=== PATIENT | male | born 1955 | race African-American/Black ===

== ENCOUNTER 2019-03-30 16:47 | Inpatient (IN) ==
[2019-03-30] MEDS ORDERED: NS 1,000 ML IV ONE (17:06)
[2019-03-30 17:52] LABS: BASO# 0.04 X1000 (0.0-0.2); BASO% 0.6 % (0.0-0.8); EOS# 0.07 X1000 (0.0-0.7); EOS% 1.1 % (0.0-10.0); HEMATOCRIT 38.8 % (42.0-52.0); HEMOGLOBIN 12.4 g/dL (14.0-18.0); LYMPH# 1.24 X1000 (1.2-3.4); LYMPH% 19.8 % (20.5-51.1); MCH 27.1 PG (27-31); MCV 84.7 FL (81-99); MONO# 0.62 X1000 (0.11-0.59); MONO% 9.9 % (1.7-9.3); MPV 11.3 FL (7.4-10.4); NEUT# 4.28 X1000 (1.4-6.5); NEUT% 68.6 % (42.2-75.2); PLT 234 X1000 (130-400); RBC 4.58 XMIL (4.7-6.1); RDW 14.9 % (11.5-14.5); WBC 6.25 X1000 (4.8-10.8)
--- NOTE | 2019-03-30 17:52 | PROVIDER DOCUMENTATION ---
This chart was entered by Zarina Quiñonez Scribe, acting as scribe for Gina Hernandez MD. HPI-Syncope/Dizziness - General Chief Complaint: Syncope Stated Complaint: syncope/ v tach Time Seen by Provider: 03/30/19 16:56 Source: patient Allergies/Adverse Reactions: Patient Allergies Allergy/AdvReac Type Severity Reaction Status Date / Time No Known Allergies Allergy Verified 03/30/19 17:14 Home Medications: Home Medication List Medication Instructions Recorded Confirmed Last Taken Type Amiodarone HCl 200 mg PO DAILY 03/30/19 03/30/19 Unknown History Apixaban [Eliquis] 5 mg PO BID 03/30/19 03/30/19 Unknown History Famotidine [Pepcid] 20 mg PO DAILY 03/30/19 03/30/19 Unknown History Spironolactone 25 mg PO DAILY 03/30/19 03/30/19 Unknown History Carvedilol [Coreg] 3.125 mg PO BID #120 tab 04/02/19 Unknown Rx Furosemide [Lasix] 20 mg PO DAILY #30 tab 04/02/19 Unknown Rx Losartan [Cozaar] 100 mg PO DAILY #120 tab 04/02/19 Unknown Rx ROSUVAstatin [Crestor] 40 mg PO HS #120 tab 04/02/19 Unknown Rx - History of Present Illness-Syncope/Dizzy Nature of Presenting Problem: 63yom presents to ED by 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 Pt reports he was at work, started feeling dizzy, weak in the bathroom so he put hands out, kept from falling but when he went outside his coworkers noticed he looked 'off' so they sat him down and called EMS. EMS report when they hooked pt up to monitor he had a run of V-tach and syncope. Pt reports he had heart cath 1yr ago which showed a blockage but no intervention was recommended at time. Prior Episodes: reports: no prior history Onset/Duration: reports: just prior to arrival Timing: reports: resolved prior to arrival Position/Activity at time of episode: reports: sitting Symptoms prior to episode: reports: lightheaded Location of injury. (If syncope resulted in an injury.): reports: none Current Symptoms: reports: weakness Recently Seen Here or By Another Healthcare Provider: No Review of Systems - Adult - REVIEW OF SYSTEMS - ADULT Constitutional: reports: see HPI, fatique. denies: chills, fever Eyes: reports: no symptoms reported Ears, Nose, Mouth & Throat: reports: no symptoms reported Cardiovascular: reports: see HPI, irregular heart rate, syncope. denies: chest pain Respiratory: reports: no symptoms reported Gastrointestinal: reports: no symptoms reported Genitourinary: reports: no symptoms reported Musculoskeletal: reports: no symptoms reported Integumentary: reports: no symptoms reported Neurological: reports: see HPI, dizziness/vertigo, loss of balance, syncope. denies: slurred speech Psychiatric: reports: no symptoms reported Endocrine: reports: no symptoms reported Hematologic/Lymphatic: reports: no symptoms reported Allergic/Immunologic: reports: no symptoms reported All Other Systems: Reviewed and Negative Past History - Adult - PAST MEDICAL HISTORY-ADULT Review of Records: reports: Nursing Assessment Review, Medications Reviewed, Social history reviewed & non-contributory. Major Childhood Illnesses: reports: denies history Cardiovascular: reports: denies history Respiratory: reports: denies history Gastrointestinal: reports: denies history Obstetrical/Gynecological: reports: denies history Genitourinary: reports: denies history Musculoskeletal: reports: denies history Neurological: reports: denies history Endocrine/Immune: reports: denies history Other Conditions: reports: denies history - IMMUNIZATION STATUS Childhood Immunizations: See Nurse Assessment Flu Vaccine: See Nurse Assessment - FAMILY HISTORY Family History: reviewed, not pertinent Physical Exam-General - PHYSICAL EXAM-ADULT Initial Vital Signs Reviewed: Yes - CONSTITUTIONAL General Appearance: appears well, alert, no apparent distress. negative: anxious, combative - EYES Eyes: PERRL/EOMI, pink conjunctivae. negative: photophobia - HEAD, EARS, NOSE, MOUTH & THROAT HENMT: normocephalic/atraumatic, moist mucous membranes. negative: angioedema - NECK Neck: non-tender, full range of motion, supple, normal inspection. negative: C- spine tenderness - RESPIRATORY Respiratory: chest non-tender, lungs clear, normal breath sounds. negative: stridor, wheezing - CARDIOVASCULAR Cardiovascular: normal peripheral pulses, regular rate, rhythm, no edema. negative: bradycardia, tachycardia - GASTROINTESTINAL (ABDOMEN) Abdominal Exam: normal bowel sounds, non tender, other (protuberant abdomen). negative: guarding - MUSCULOSKELETAL Back Exam: normal inspection, no CVA tenderness, no vertebral tenderness Extremity: normal range of motion, non-tender, normal gait, normal inspection. negative: deformity - SKIN Integumentary: normal color. negative: diaphoresis, laceration(s) - NEUROLOGIC Neurologic: hatch supervisor II-XII nml as tested, grossly normal, no motor/sensory deficits - PSYCHIATRIC Psych/Mental Status: normal mood/affect, oriented x 3. negative: anxious, disheveled Progress - PLAN OF CARE/RESULTS Progress/Plan/Lab Results: Orders Category Date Time Status Admit [facility] Routine AdmDCTranf 03/30/19 22:36 Active Activity - Up with Assistance ORDERED Care 03/30/19 22:36 Active Cardiac Monitoring DIRECTED Care 03/30/19 17:06 Completed Intake and Output-Strict ORDERED Care 03/30/19 22:36 Active Nursing- MD Consult Request ROUTINE Care 03/30/19 22:36 Completed Saline Loc NOW Care 03/30/19 17:05 Completed Vital Signs Order Q 8-HR ASSESS Care 03/30/19 22:36 Active Z-Document. for Tele Applied ORDERED Care 03/30/19 22:36 Completed Physician/Provider Consults Routine Cons 03/30/19 22:36 Ordered CHEST-2 VIEWS [RAD] Routine Exams 03/31/19 10:00 Completed CHEST-2 VIEWS [RAD] Stat Exams 03/30/19 17:05 Completed A1C HGB W EST AVG GLUCOSE [CHEM] Routine Lab 03/31/19 07:07 Completed BASIC METABOLIC PANEL [CHEM] Routine Lab 03/31/19 07:07 Completed CBC WITH DIFF [HEME] Routine Lab 03/31/19 07:07 Completed CBC WITH ELECTRONIC DIFF [HEME] Stat Lab 03/30/19 17:33 Completed COMPREHENSIVE METABOLIC PANEL [CHEM] Stat Lab 03/30/19 17:33 Completed FERRITIN Routine Lab 03/31/19 07:07 Completed FOLATE Routine Lab 03/31/19 07:07 Completed FREE T4 Stat Lab 03/30/19 17:33 Completed INFLUENZA SCREEN A/B Stat Lab 03/30/19 17:26 Completed LIPID PROFILE W/CALC LDL [LIPIDS] Routine Lab 03/31/19 07:07 Completed MAGNESIUM [CHEM] Stat Lab 03/30/19 17:33 Completed PRO B-NATRIURETIC PEPTIDE Stat Lab 03/30/19 17:33 Completed PROTIME WITH INR [COAG] Stat Lab 03/30/19 17:33 Completed PTT [COAG] Stat Lab 03/30/19 17:33 Completed RETIC COUNT [HEME] Stat Lab 03/30/19 17:33 Completed TOTAL IRON [CHEM] Routine Lab 03/31/19 07:07 Completed TROPONIN T HIGH SENSITIVITY Routine Lab 03/30/19 23:26 Completed TROPONIN T HIGH SENSITIVITY Stat Lab 03/30/19 17:33 Completed TSH Stat Lab 03/30/19 17:33 Completed URINALYSIS W/POSS RFLX CULT [URINALYSIS] Stat Lab 03/30/19 18:10 Completed VITAMIN B12 Routine Lab 03/31/19 07:07 Completed 0.9% Sodium Chloride Inj [Ns] 1,000 ml Med 03/30/19 17:06 Discontinued IV 999 mls/hr Acetaminophen [Tylenol] Med 03/30/19 22:36 Discontinued 650 mg PO Q6H PRN PRN Amiodarone [Cordarone] Med 03/31/19 09:00 Discontinued 200 mg PO DAILY Apixaban [Eliquis] Med 03/30/19 22:36 Discontinued 5 mg PO BID Carvedilol [Coreg] Med 03/30/19 22:36 Discontinued 3.125 mg PO BID Famotidine [Pepcid] Med 03/31/19 09:00 Discontinued 20 mg PO DAILY Furosemide [Lasix] Med 03/30/19 22:36 Discontinued 20 mg IV Q12H Furosemide [Lasix] Med 03/30/19 18:47 Discontinued 40 mg IV NOW ONE Losartan [Cozaar] Med 03/31/19 09:00 Discontinued 100 mg PO DAILY Ondansetron [Zofran] Med 03/30/19 22:36 Discontinued 4 mg IV Q4H PRN PRN Spironolactone [Aldactone] Med 03/31/19 09:00 Discontinued 25 mg PO DAILY Oxygen Device Stat Oth 03/30/19 17:06 Completed Telemetry [OM.EQ] Routine Oth 03/30/19 22:36 Active EKG [EKG] Routine Ther 03/31/19 08:00 Completed EKG [EKG] Stat Ther 03/30/19 17:05 Draft Echo Spec/Color Doppler Routine Ther 03/30/19 22:36 Completed Transfer/Admit Order [TRANSFER] Routine Transfer 03/30/19 20:21 Completed Result Diagrams: 03/31/19 07:07 03/31/19 07:07 - REASSESSMENT Reassessment #1 Time Reassessed: 18:52 Status: improving (witnessed episode of vtach and syncopal 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 labs reviewed and showing CHF exacerbation. Pt states he follows with cardiology Dr. Moon in [place]. He also states he had CVA last year and is currently on eliquis.) - EKG 1 Time of EKG reading by physician:: 17:08 EKG Read and Signed by:: Gina Hernandez EKG Interpretation (*Must complete 3 of following elements*): Abnormal Rate: 70 Rhythm: NSR with PAC QRS: poor R wave progression, other (prolonged QT) ST Wave: non-specific ST changes Prior EKG Comparison: no prior EKG Departure - Departure Date of Disposition Decision: 03/30/19 Time of Disposition Decision: 18:47 DIAGNOSIS: CHF exacerbation, New onset of congestive heart failure, Syncope Disposition: ADMITTED INPATIENT 09 Certified Medical Emergency: Emergent Condition: Stable - Critical Care Note This patient required my direct & personal management of CC.: No Attestation - Physician/ ASHLEE Attestation Patient care was provided by Advanced Practice Provider:: No The physician spent face to face time with patient:: Yes Advanced Practice Provider documentation review:: Supervising physician onsite and consulted in the evaluation and care of this patient. The physician did have a face to face encounter with the patient. This chart was documented by the indicated scribe, (Zarina Quiñonez Scribe) and accurately reflects the services I performed and decisions made by me, Gina Hernandez MD, as attested by the provider's signature.
[2019-03-30 17:53] LABS: PROTIME 13.3 Seconds (11.0-16.0); PTT 24.6 Seconds (22.3-41.8)
[2019-03-30 18:07] LABS: AGAP 13; ALB/GLOB RATIO 1.1; ALBUMIN 3.7 g/dL (3.5-5.0); ALKALINE PHOSPHATASE 68 U/L (32-122); BUN 14 mg/dL (8-22); CALCIUM 9.1 mg/dL (8.8-10.2); CHLORIDE 101 mmol/L (98-107); COSMO 278; CREATININE 1.2 mg/dL (0.7-1.2); ESTIMATED GFR > 60; GLUCOSE 106 mg/dL (70-104); GOT 14 U/L (10-34); GPT 11 U/L (10-44); MAGNESIUM 2.2 mg/dL (1.5-2.7); POTASSIUM 4.2 mmol/L (3.5-5.1); SODIUM 139 mmol/L (136-145); TCO2 25 mmol/L (25-35); TOTAL BILIRUBIN 0.36 mg/dL (0.20-1.00)
--- NOTE | 2019-03-30 18:12 | Diag Imaging Result Doc PS360 ---
EXAM: CHEST-2 VIEWS 03/30/2019 HISTORY: syncope TECHNIQUE: PA and lateral chest COMMENT: There is cardiomegaly. There is increased interstitial markings. There are no previous studies. IMPRESSION: Cardiomegaly and interstitial pulmonary edema. Electronically signed by Jeff Giron 03/30/2019 6:10 PM
[2019-03-30 18:25] LABS: URINE SOURCE CLEAN CATCH
[2019-03-30 18:45] LABS: BILIRUBIN URINE NEGATIVE (NEGATIVE); BLOOD URINE NEGATIVE (NEGATIVE); COLOR YELLOW; GLUCOSE URINE NEGATIVE (NEGATIVE); KETONE URINE NEGATIVE (NEGATIVE); LEUKOCYTES URINE NEGATIVE (NEGATIVE); NITRITE URINE NEGATIVE (NEGATIVE); PH URINE 6.5; PROTEIN URINE TRACE mg/dL (NEGATIVE); SP GRAVITY URINE 1.024; TURBIDITY URINE CLEAR (CLEAR); UROBILINOGEN URINE 4 mg/dL (NORMAL)
[2019-03-30 18:47] LABS: UR EPITHELIAL CELLS <10 /HPF (<10); URINE BACTERIA NEGATIVE /HPF; URINE RBC <10 /HPF (<10); URINE WBC <10 /HPF (<10)
[2019-03-30] MEDS ORDERED: LASIX IV ONE (18:47)
[2019-03-30 21:02] LABS: RETIC% 0.99 % (0.8-2.1); RETIC-HE 31.2 PG (28.2-36.6)
--- NOTE | 2019-03-30 21:18 | HISTORY AND PHYSICAL ---
PRIMARY CARE PHYSICIAN: Dr. Brad Graham, [place], [place]. PRIMARY TEACHER: Dr. Bunch, [place], [place]. MANAGER LSW: Dr. Stefano Florentino, [place], [place]. REASON FOR ADMISSION: Presyncopal event today. HISTORY OF PRESENT ILLNESS: Mr. Nelson Matthews is a 63-year-old, black man, with past medical history of inoperable coronary artery disease. He had a cardiac catheterization a year ago, but they felt no intervention could be offered at that time. He also has a history of hypertension and atrial fibrillation. He was at work today while trying to urinate, and before he could initiate micturition, he said he felt a cold sweat come over him, he felt dizzy and a little sick to his stomach, and he had to support himself with his hands while facing the urinal. A colleague of his witnessed this and then assisted him back to a chair where he sit down, but he said his symptoms did not improve. EMS was called and reportedly they hooked him up to a monitor and they noticed he was having intermittent ventricular tachycardia. He was brought here for further evaluation and treatment. The patient said throughout this period, he denied any palpitations, chest pain, or shortness of breath. He denies any antecedent complaints of leg swelling, PND, orthopnea, cough, fever, chills. He denies any complaints of lower extremity redness or pain. He denies any abdominal distention or easy satiety. He denies any gastrointestinal complaints other than the nausea today. The patient does have a longstanding history of urinary hesitancy, straining, and nocturia. REVIEW OF SYSTEMS: A 12-system review was done. Currently, he feels much better since he received some Lasix. ALLERGIES: No known allergies. HOME MEDICATIONS: Amiodarone 200 mg daily, Eliquis 5 mg b.i.d., losartan 50 mg daily, spironolactone 25 mg daily, Pepcid 20 mg daily. SURGICAL HISTORY: He has had a cardiac stent before. SOCIAL HISTORY: Does not smoke, drink, or use illicit drugs. Lives with . FAMILY HISTORY: Mom had heart disease, but nobody with cancer or diabetes in first-degree relatives. PAST MEDICAL HISTORY: History includes COPD and sleep apnea, and has chronic lung nodules which have been monitored. He also has a prior history of CVA. LABORATORY AND DIAGNOSTIC DATA: White count 6000, hemoglobin and hematocrit 12 and 38, platelets 234,000, with normal differential. BUN 14, creatinine 1.2. Troponin 35. Magnesium 2.2. TSH is normal. PT/PTT normal. Urinalysis essentially benign. Flu swab was negative. Chest film showed cardiomegaly with interstitial pulmonary edema. PHYSICAL EXAMINATION: GENERAL: Morbidly obese, pleasant, middle-aged, -[place] man, not in acute distress. He is A O x3, with normal mood and affect. HEENT: Head is normocephalic, atraumatic. Eyes, PERRL, EOMI. He is anicteric and not pale. ENT/oropharyngeal exam is grossly normal. NECK: Supple. No JVD or carotid bruit. No thyromegaly. CHEST: Surprisingly is clear when auscultated with good air entry in both lung eric. CARDIOVASCULAR SYSTEM: First and second heart sounds heard. No gallops, murmurs, rubs. Rhythm is irregular. ABDOMEN: Protuberant, soft, nontender. No organomegaly. Bowel sounds are normal. RECTAL: Deferred. EXTREMITIES: Good distal pulse volumes, irregular, symmetrical. No edema, clubbing, or peripheral cyanosis. NEUROLOGICAL: No gross focal deficits. SKIN: Intact. No breakdown, lesions, or erythema. MUSCULOSKELETAL: Grossly normal. ASSESSMENT: 1. New-onset congestive heart failure. 2. Presyncope with associated ventricular tachycardia. 3. Coronary artery disease. 4. Atrial fibrillation. 5. Hypertensive heart disease. 6. Anemia of chronic disease. PLAN: The patient will be admitted, cautiously diuresed. The patient will need to optimize blood pressure medications. We will start patient on low-dose Coreg. Echocardiogram will be ordered to see if patient has depressed LV function. If so, consideration for Entresto may need to be entertained. We will consult Cardiology for further input. Magnesium was normal. The patient has low LV function. Also, consideration for AICD also may need to be considered. Otherwise, I instructed patient that he has to be compliant with his CPAP machine, as this sleep apnea has been associated with malignant arrhythmias. Increased the dose of losartan from 50 to 100 due to his mildly elevated blood pressure. cc: MD Brad Wren MD Albert Scherff Dr. Alivia, defective cigarette slitter
[2019-03-30] MEDS ORDERED: TYLENOL PO PRN (22:36)
[2019-03-30] MEDS ORDERED: ZOFRAN IV PRN (22:36)
[2019-03-31] MEDS: COREG PO SCH ×3 (02:15→20:05)
[2019-03-31] MEDS: LASIX IV SCH ×2 (02:15→14:40)
[2019-03-31] MEDS: ELIQUIS PO SCH ×3 (02:16→20:05)
--- NOTE | 2019-03-31 07:31 | EKG Report ---
Test Performed on : 03/31/2019 06:40:43 AM Test Reason : chest pain Blood Pressure : / mmHG Vent. Rate : 060 BPM Atrial Rate : 060 BPM P-R Int : 202 ms QRS Dur : 108 ms QT Int : 462 ms P-R-T Axes : 074 -02 043 degrees QTc Int : 462 ms Sinus rhythm. with marked sinus arrhythmia. T wave abnormality, consider anterolateral ischemia Prolonged QT Abnormal ECG When compared with ECG of 30-MAR-2019 17:06, (Unconfirmed) premature atrial complexes. are no longer present T wave inversion now evident in Anterior leads Confirmed by Chavo HAGEN, Jerson Cowan ([id number]) on 03/31/2019 7:03:09 PM
[2019-03-31 07:40] LABS: BASO# 0.01 X1000 (0.0-0.2); BASO% 0.2 % (0.0-0.8); EOS# 0.08 X1000 (0.0-0.7); EOS% 1.2 % (0.0-10.0); HEMATOCRIT 41.2 % (42.0-52.0); HEMOGLOBIN 13.1 g/dL (14.0-18.0); LYMPH# 1.44 X1000 (1.2-3.4); LYMPH% 21.7 % (20.5-51.1); MCHC 31.8 g/dL (33-37); MCV 84.8 FL (81-99); MONO# 0.64 X1000 (0.11-0.59); MONO% 9.6 % (1.7-9.3); MPV 11.4 FL (7.4-10.4); NEUT# 4.48 X1000 (1.4-6.5); NEUT% 67.3 % (42.2-75.2); PLT 244 X1000 (130-400); RBC 4.86 XMIL (4.7-6.1); RDW 15.1 % (11.5-14.5); WBC 6.65 X1000 (4.8-10.8)
--- NOTE | 2019-03-31 07:45 | EKG Report ---
Test Performed on : 03/30/2019 5:06:48 PM Test Reason : CP Blood Pressure : / mmHG Vent. Rate : 070 BPM Atrial Rate : 070 BPM P-R Int : 192 ms QRS Dur : 108 ms QT Int : 428 ms P-R-T Axes : 027 -08 056 degrees QTc Int : 462 ms Sinus rhythm. with premature atrial complexes. T wave abnormality, consider lateral ischemia Prolonged QT Abnormal ECG No previous ECGs available Unconfirmed Result
[2019-03-31 07:55] LABS: HEMOGLOBIN A1C 5.7 % (4.8-6.0)
[2019-03-31 08:00] LABS: AGAP 13; BUN 13 mg/dL (8-22); CALCIUM 9.2 mg/dL (8.8-10.2); CHLORIDE 104 mmol/L (98-107); CHOLESTEROL 174 mg/dL (0-200); COSMO 286; CREATININE 1.2 mg/dL (0.7-1.2); ESTIMATED GFR > 60; GLUCOSE 107 mg/dL (70-104); HDL 48 mg/dL (35-55); LDL 115 mg/dL; POTASSIUM 3.9 mmol/L (3.5-5.1); SODIUM 143 mmol/L (136-145); TCO2 26 mmol/L (25-35); TOTAL IRON 62 ug/dL (53-167); TRIGLYCERIDES 54 mg/dL (39-160); VLDL 11 mg/dL
[2019-03-31 08:10] LABS: FERRITIN 238 ng/mL (30-400)
--- NOTE | 2019-03-31 10:39 | Diag Imaging Result Doc PS360 ---
EXAM: CHEST-2 VIEWS 03/31/2019 HISTORY: CHF TECHNIQUE: PA and lateral chest COMMENT: There is slightly worsened atelectatic appearing opacity in the left costophrenic angle. The interstitial opacity which was demonstrated on the previous study of 03/30/2019. Study have improved slightly and the heart size is smaller in appearance. IMPRESSION: Improved cardiomegaly and pulmonary edema. Left lower lobe atelectasis. Electronically signed by Jeff Giron 03/31/2019 10:36 AM
[2019-03-31] MEDS: ALDACTONE PO SCH (11:04)
[2019-03-31] MEDS: PEPCID PO SCH (11:04)
[2019-03-31] MEDS: CORDARONE PO SCH (11:05)
[2019-03-31] MEDS: COZAAR PO SCH (11:05)
[2019-03-31] MEDS ORDERED: LEXISCAN ONE (13:00)
--- NOTE | 2019-03-31 13:32 | ECHO REPORT ---
ORDER DATE: 03/30/2019 INDICATIONS: Coronary disease, hypertension, atrial fibrillation, ventricular tachycardia, and dizziness. FINDINGS: 1. The right atrium appears normal in size at 3.9 cm. 2. Mild tricuspid regurgitation. RV systolic pressure of 37. 3. The right ventricle appears to be normal in size with normal RV systolic function. 4. No significant pulmonic insufficiency. 5. Mild left atrial enlargement with a dimension of 4.4 cm. 6. No mitral valve prolapse. Mild mitral regurgitation. No mitral stenosis. 7. Normal LV size with an end-diastolic dimension of 5.4 cm. Mild left ventricular hypertrophy with a posterior and interventricular septal wall thickness 1.3 cm each. Severe reduction in LV systolic function with an estimated EF of 25%. Severe global hypokinesis. 8. Aortic valve opens well. It is trileaflet. Mild insufficiency. No stenosis. 9. Aorta appears normal visualized segments. 10. No pericardial effusion seen. 11. Evaluation of intra-atrial septum would suggest color Doppler flow suggesting a left to right shunt suggestive of possible PFO. There was a negative bubble study on this echo suggesting no [id number] shunting. 12. Previous ejection fraction in November of 2017. It was 20%. 13. IVC appears normal in size. cc: MD Namita Michelle MD
--- NOTE | 2019-03-31 15:22 | Diag Imaging Result Document ---
PROCEDURE NAME: MYOCARDIAL PERF SCAN, STR/REST - 03/31/2019 INDICATION: Ventricular tachycardia. PROCEDURES PERFORMED: 1. Walking Lexiscan stress. 2. One-day stress/rest myocardial perfusion imaging. (Rest dose is 14.7 millicuries, stress dose 44.4 mCi.) PROCEDURE FINDINGS: WALKING LEXISCAN STRESS: 1. The baseline EKG shows sinus rhythm, PVCs, nonspecific ST-T changes. 2. Walking Lexiscan stress not demonstrate any clear evidence of ischemic related EKG changes or significant arrhythmias. PERFUSION IMAGING RESULTS: 1. Evidence of abnormal extracardiac uptake. 2. TID ratio 0.9. 3. Perfusion imaging demonstrates fixed defects. These would involve portions of the mid and basal anterior septum, mid and basal anterior wall, portions of the mid and basal anterior and inferolateral wall, as well as the mid and basal inferior wall. These defects are all fixed. There is no evidence of reversibility associated with any of these findings. The SUM stress score is 13, the SUM rest score is 12. Again, no evidence of ischemic changes. 4. EC toolbox has a rest ejection fraction of 30% with an end-diastolic volume of 284, end- systolic volume of 198. Myometrics calculates the ejection fraction at 22% with an end- diastolic volume 181, end-systolic volume of 142. Severe global hypokinesis with some regional variation noted. Dilated left ventricle. cc: MD Joseph Michelle MD
--- NOTE | 2019-03-31 17:33 | PROGRESS NOTE ---
DATE: 03/31/2019 SUBJECTIVE: This morning Mr. Matthews refers to be doing well. He said he was at work when he felt like going to use the restroom and then on the way he felt quite dizzy, felt like he was going to pass out, so he leaned against the wall and a coworker took him to sit down. EMS was called and he was brought in. According to the ER report, when they hooked him to the monitor at work, he was found to be in ventricular tachycardia and is also reported that he syncopized. Mr. Matthews denies blacking out at any time. He said he was able to hear them and talk to them. By the way, Mr. Matthews himself is very eager and wanted to go home, so I am not sure if he is giving us the entire history. OBJECTIVE: Vital Signs: Blood pressure is 145/98, pulse of 65, respirations 19, temperature 97.6 degrees. The patient is saturating 98%. Upon arrival, his vital signs were also pretty much stable. I do not see any orthostatic done. General: Mr. Matthews is a 63-year-old gentleman. He was in bed. He was not in any distress. No supplemental oxygen. HEENT: Mucosa is pink and moist. Anicteric. Acyanotic. Neck: Supple. Mild JVD was noted. Chest: Good air entry bilateral. No crepitations. Cardiovascular: Regular rate and rhythm. I did not hear any murmur, and no rubs, no gallops. Gastrointestinal: Abdomen is soft, nontender. Bowel sounds present. Extremities: No pedal edema. Central Nervous System: The patient is awake, alert, and oriented. LABORATORY DATA: CBC for most part is unremarkable. Chemistry is also within normal range. The patient's magnesium on admission was 2.2. Cholesterol panel as well as B12 were all within normal range. The patient had troponins were minimally elevated at 35 and 34. DIAGNOSTIC STUDIES: A chest x-ray which was done on admission showed cardiomegaly and interstitial pulmonary edema. A repeat chest x-ray shows improved cardiomegaly and pulmonary edema. There is a left lower lobe atelectasis. An echocardiogram shows an ejection fraction of 25% with severe global hypokinesis. There is a suggestion that the patient has PFO. The IVC seems to appear normal sized. ASSESSMENT AND PLAN: 1. Ventricular tachycardia on presentation associated with presyncope/syncopal episode. The patient currently is in normal sinus rhythm. 2. History of coronary artery disease, but nonobstructive lesion. According to Mr. 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 He did a left heart catheterization on him about 1 year ago. He was told that he does have some coronary arthrosclerosis, but not enough to do intervention. 3. Severe systolic dysfunction with ejection fraction of 25%. In the contest of generalized hypokinesis with an bahai of the ventricular tachycardia, the syncopal episode, I think Mr. Matthews will need to be evaluated for an automatic implantable cardioverter-defibrillator. 4. Hypertension with hypertensive heart disease. 5. Anemia of chronic disease. SUMMARY: In general, Mr. Matthews is now feeling well. Denies any complaints. No shortness of breath. No chest pain. A stress test has been done and we are waiting on the final results. We also waiting on Cardiology's recommendations and then go from there. cc: Wesly Jenkins MD
--- NOTE | 2019-03-31 19:28 | CARDIOLOGY CONSULTATION ---
DATE: 03/31/2019 CONSULTATION REQUESTED BY: Hospitalist service. REASON: Near-syncope, dizziness, diaphoresis. HISTORY: Mr. Matthews is a 63-year-old black gentleman. He presented to the emergency room on 03/30/2019 at about 5 p.m. with a complaint of feeling dizzy when he was at work. He felt like almost falling and passing out. His coworkers called the EMS and they reported that he was having runs of what they interpreted as wide complex tachycardia; however, there is no documentation anywhere of such rhythm. At any rate, in the ER, they did the usual testing. A high sensitivity troponin was positive at 35 ng/L with a followup 5 hours layer of 34 ng/L. ProBNP is 1108. Upper normal for his age is 177. His LDL cholesterol is 115, HDL is 48. His initial chest x-ray showed cardiomegaly with questionable interstitial pulmonary edema. Echocardiogram shows low ejection fraction at 25% with global severe hypokinesis. The patient at this time is not complaining of any chest pain. He is not feeling short of breath. He was really at work when all this happened. His EKG from 5 p.m. on 03/30/2019 showed sinus rhythm with a diffuse repolarization abnormality, and the subsequent EKG on 03/31/2019 at 6:40 a.m. shows the same. Nonspecific T-wave abnormality. He is sitting upright and basically has no further complaints. PAST HISTORY: Positive for hypertension and COPD. He has obstructive sleep apnea. He has suffered a stroke in the past. He has coronary heart disease. He had a heart catheterization in September 2018 following an abnormal myocardial PET scan, which indicated that there was inducible ischemia of mild degree at the level of the inferior wall of the left ventricle. At that time, his ejection fraction by PET scan was reported to be 35% at rest and 47% post stress, a small ischemic burden. The heart catheterization revealed a moderate stenosis of the right coronary artery in the order of 50%, which was deemed to be codominant, and they did IFR which was reported at 0.89, suggesting a borderline lesion and they decided not to intervene. The LAD showed a mid 50% calcification. The patient has paroxysmal atrial fibrillation. He is obese with a body mass index of 37.9. He has some chronic kidney disease. SURGICAL HISTORY: Negative. SOCIAL HISTORY: He is . 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 He lives at home. Not a smoker or drinker. FAMILY HISTORY: Mother and father had heart disease. Mother had a stroke. ALLERGIES: Negative. HOME MEDICATIONS: At this time included: 1. Amiodarone 200 daily. 2. Apixaban 5 mg twice a day. 3. Pepcid 20 mg daily. 4. Losartan 50 mg daily. 5. Spironolactone 25 mg daily. REVIEW OF SYSTEMS: Really noncontributory. He has been able to carry on with his usual physical activities without limitations. PHYSICAL EXAMINATION: Vital signs: Blood pressure 145/98, temperature 97.6 degrees, pulse 65, respirations 18. General: Patient is awake, alert, oriented, in no distress. HEENT: Unremarkable. Chest: Sounds clear to auscultation and percussion. Heart: Sounds are distant, regular. No gallop or murmur. Abdomen: Obese, nontender. Extremities: Show good pulses. No peripheral edema. Neurologic: Nonfocal. Moves all 4 extremities. IMPRESSION: 1. Patient who presents with near syncope, dizziness, question of recurrent wide complex tachycardia. 2. History of paroxysmal atrial fibrillation. 3. Cardiomyopathy, low ejection fraction. This is chronic. 4. History of moderate coronary artery disease with borderline stenosis of the right coronary artery and also the left anterior descending. 5. detention hypertension. 6. Obesity. 7. History of sleep apnea syndrome. RECOMMENDATION: At this time, the patient is going to undergo a myocardial perfusion stress test. Depending on the results, we will decide on whether or not he could be discharged home or stay over the weekend in observation, and then finished the second part of the perfusion imaging on Wednesday. The patient has been started on beta len, carvedilol 3.125 twice a day. I believe that is appropriate. He may need to go higher with a beta len depending on his blood pressure tolerance. As far as additional drugs, we might favor Entresto if the patient is able to afford that medicine. Otherwise, we will continue losartan, and in fact, we might increase the losartan to 150 mg daily given in 2 doses a day, one of 100 and the other one of 50 daily. We will follow him after the stress test. cc: Joseph Johnson MD
[2019-03-31] MEDS: CRESTOR PO SCH (20:06)
[2019-04-01] MEDS: LASIX IV SCH ×2 (02:47→15:30)
[2019-04-01] MEDS: COREG PO SCH ×2 (09:13→20:12)
[2019-04-01] MEDS: PEPCID PO SCH (09:13)
[2019-04-01] MEDS: ALDACTONE PO SCH (09:14)
[2019-04-01] MEDS: ELIQUIS PO SCH ×2 (09:14→20:12)
[2019-04-01] MEDS: COZAAR PO SCH (09:14)
[2019-04-01] MEDS: CORDARONE PO SCH (09:14)
--- NOTE | 2019-04-01 14:23 | PROGRESS NOTE ---
DATE: 04/01/2019 SUBJECTIVE: This morning Mr. Matthews refers to be doing well. The was at the bedside at the time of the encounter. He denies having any syncopal episode. OBJECTIVE: Vital signs: Blood pressure is 134/91, pulse of 70, respirations 20, temperature 97.3 degrees. General: Mr. Matthews is a 63-year-old gentleman. He is in bed in no distress. HEENT: Mucosa is pink and moist. Anicteric. Acyanotic. Neck: Supple. Chest: Good air entry bilaterally. There was no crepitations. No rhonchi. Cardiovascular: Regular rate and rhythm. No murmurs, no rubs, no gallops. GI: Abdomen is soft, nontender. Bowel sounds present. 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 LABORATORY DATA: CBC is unremarkable. Chemistry is also within normal range. A stress test, which was done yesterday, shows an ejection fraction of between 22 to 30 percent. There are fixed defects in the perfusion scan, but no ischemic changes. ASSESSMENT: 1. Ventricular tachycardia on presentation associated with presyncopal episode. 2. History of coronary artery disease. The patient's stress test shows scars, but no ischemic changes. 3. Severe systolic dysfunction with ejection fraction of 25%. 4. Ischemic cardiomyopathy. 5. Hypertension with hypertensive heart disease. 6. Anemia of chronic disease. 7. History of previous cerebrovascular accident. PLAN: In general, I think Mr. Matthews is doing well. Denies any new complaints. Has not had anymore blacking out. He has been evaluated by Cardiology yesterday. We are pending their final recommendations today and decide if the patient can be discharged or will need other further testing. cc: Wesly Jenkins MD
[2019-04-01] MEDS: CRESTOR PO SCH (20:12)
[2019-04-02] MEDS: LASIX IV SCH (03:06)
[2019-04-02 07:19] VITALS: BP 130/80
[2019-04-02] MEDS: ALDACTONE PO SCH (08:46)
[2019-04-02] MEDS: CORDARONE PO SCH (08:46)
[2019-04-02] MEDS: COREG PO SCH (08:46)
[2019-04-02] MEDS: COZAAR PO SCH (08:46)
[2019-04-02] MEDS: ELIQUIS PO SCH (08:46)
[2019-04-02] MEDS: PEPCID PO SCH (08:46)
--- NOTE | 2019-04-02 18:55 | DISCHARGE SUMMARY ---
ADMISSION DATE: 03/30/2019 DISCHARGE DATE: 04/02/2019 DISPOSITION: home. FOLLOW-UP: Dr. Eze Bunch. CONSULTATION DURING THIS ADMISSION: Cardiology was consulted. Patient was seen by Dr. Johnson. INVASIVE PROCEDURES DONE DURING THIS ADMISSION: None. IMAGING STUDIES OF SIGNIFICANCE: 1. Chest x-ray showed cardiomegaly and interstitial pulmonary edema. 2. Echocardiogram showed ejection fraction of 25%. Severe global hypokinesis. 3. Myocardial perfusion scan showed no evidence of reversibility, but there was evidence of ischemic cardiomyopathy. ADMISSION DIAGNOSES: 1. New onset congestive heart failure. 2. Presyncope with associated ventricular tachycardia. 3. Coronary artery disease. 4. History of atrial fibrillation. 5. Hypertensive heart disease. DIAGNOSIS AT THE TIME OF DISCHARGE: 1. Ventricular tachycardia on presentation associated with presyncopal episode. 2. History of coronary artery disease. The patient had a stress test done during the hospital course which did not show any ischemic changes. 3. Severe systolic dysfunction with ejection fraction of 25% associated with global hypokinesis. 4. Ischemic cardiomyopathy. 5. Hypertension with hypertensive heart disease. 6. Anemia of chronic disease. 7. Remote history of cerebrovascular accident. DISCHARGE MEDICATIONS: 1. Eliquis 5 mg b.i.d. 2. Losartan 100 mg p.o. daily. 3. Spironolactone 25 mg p.o. daily. 4. Amiodarone 200 mg p.o. daily. 5. Famotidine 20 mg p.o. daily. 6. Coreg 3.125 b.i.d. 7. Crestor 40 mg p.o. daily. 8. Lasix 20 mg p.o. daily. PRESENTING COMPLAINT: Presyncopal event. HISTORY OF PRESENTING COMPLAINT: Mr. Matthews is a 63-year-old gentleman who is known to have coronary artery disease but nonobstructive. Also has atrial fibrillation on Eliquis. Came to the emergency room after he felt dizzy, almost passing out at work. EMS was called. Per documentation, it appears that the patient had some nonsustained intermittent ventricular tachycardia when he was hooked to the telemonitor. He was brought into the emergency room where he was evaluated and was admitted for syncopal episode to rule out any fatal cardiac arrhythmia. During the hospital course, Mr. Matthews's heart was monitored throughout the 3 days he has been in the hospital. There was no arrhythmia. He was in sinus rhythm, normal rate throughout. He was evaluated by Cardiology. Dr. Johnson made some changes and additions to his medications. He did not have any syncopal episode during the hospital course, and he has been up and about and has been using the restroom without any assistance. Mr. Matthews underwent echocardiogram and stress test, both of which results are in the chart. Because of his poor ejection fraction and the ischemic cardiomyopathy and the fact that he had ventricular tachycardia and nearly passed out, we think that he needs evaluation for possible AICD. Unfortunately, we cannot do that here, and Mr. Matthews has a regular followup with Dr. Bunch in [facility]. We have advised that he follows up with his patient admitting clerk within 2 to 3 days after discharge. He has been advised to continue with his current medications that have been added to his home medications and follow up with his patient admitting clerk. This morning Mr. Matthews refers to be doing well, completely asymptomatic, has not had any more dizziness or presyncopal episode, no chest pain, no shortness of breath. He feels well, and he is requesting to be discharged. I think he is fairly stable, and I have put in the discharge if it is okay with Cardiology. All the discharge instructions discussed with him and the on the phone, and they both voiced understanding. TIME SPENT: The time spent for discharge is 38 minutes. cc: MD Eze James
== END 2019-04-02 10:44 | disposition home or self-care (01) | DRG 291 ==
LOC: ED 16:47 → 3N 22:29 → SUATTDRO 22:29
PROVIDERS: ATTEND Internal Medicine